=== PATIENT | female | born 1940 | race Caucasian/White ===

== ENCOUNTER 2017-09-16 09:42 | Outpatient (CLI) | payer MEDICARE | END 2017-09-16 09:43 | disposition home or self-care (01) | LOC: BICMAMMO 09:42 | PROVIDERS: ATTEND Internal Medicine Rheumatology | DX: M81.0 Age-related osteoporosis without current pathological fracture (principal); M85.89 Other specified disorders of bone density and structure, multiple sites | CPT/HCPCS: 77080 ==

== ENCOUNTER 2019-09-14 10:04 | Outpatient (CLI) | payer MEDICARE ==
--- NOTE | 2019-09-14 11:46 | BD ---
BONE DENSITOMETRY USING DEXA: Date: 09/14/2019 HISTORY: Postmenopausal screening for osteoporosis. FINDINGS: Lumbar Spine: BMD (g/cm2) L1 0.745 T-Score: -2.2 Z-Score: 0.2 L2 0.791 T-Score: -2.2 Z-Score: 0.5 L3 0.898 T-Score: -1.7 Z-Score: 1.1 L4 1.006 T-Score: -0.5 Z-Score: 2.4 L1-L4 0.854 T-Score: -1.8 Z-Score: 1.0 Femoral Neck: 0.608 T-Score: -2.2 Z-Score: 0.2 Total Femur: 0.792 T-Score: -1.2 Z-Score: 0.9 The 10 year fracture risk for a major osteoporotic fracture is 15% and for a hip fracture is 4.6%. IMPRESSION: Osteopenia. POS: [facility]
== END 2019-09-14 10:05 | disposition home or self-care (01) ==
LOC: BICMAMMO 10:04
PROVIDERS: ATTEND Internal Medicine Rheumatology
DX: M81.0 Age-related osteoporosis without current pathological fracture (principal); M85.89 Other specified disorders of bone density and structure, multiple sites
CPT/HCPCS: 77080